=== PATIENT | male | born 1970 | race Caucasian/White ===

== ENCOUNTER → 2017-03-31 | Outpatient (CLI) | payer BC ==
--- NOTE | 2017-03-31 15:32 | MRI ---
STUDY: MRI OF THE LUMBAR SPINE HISTORY: Low back pain with numbness and tingling. Comparison: None. Technique: Multiplanar multi-sequence MRI of the lumbar spine was performed. Sagittal T1, sagittal T 2, and STIR images, axial T1, and axial T2 images were obtained. Findings: Sagittal images: Vertebral body heights and alignment are within normal limits. Marrow signal is heterogeneous.There i s degenerative endplate change identified, There is multilevel degenerative disc disease, most notabl e at L4/5. The conus medullaris is normal appearance terminating at the level of L1/2. Axial images: T12 -- L1: There is bilateral facet arthropathy and ligamentum flavum infolding. The central canal an d neural foramina are adequate. L1 -- L2: There is bilateral facet arthropathy and ligamentum flavum infolding. The central canal serenity ral foramina are adequate. L2 -- L3: There is a shallow disc bulge, bilateral facet arthropathy and ligamentum flavum infolding. The central canal and neural foramina are adequate. L3 -- L4: There is a shallow disc bulge, bilateral facet arthropathy and ligamentum flavum infolding. The central canal and left neural foramen is mild right neural foraminal stenosis. are adequate at t his level. L4 -- L5: There is a broad-based disc bulge with right paracentral disc herniation. This results in e ffacement of the right lateral recess and possible contact with the traversing L5 all nerve root with in the right lateral recess. The central canal neural foramina are adequate. L5 -- S1: There is a small central disc bulge. The central canal neural foramina are adequate. IMPRESSION: 1. The central canal neural foramina are adequate. 2. Multilevel lumbar spondylosis, most severe in L4/5. 3. 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 Reported By:
== END | disposition home or self-care (01) ==
LOC: RAD 08:17
PROVIDERS: ATTEND Orthopaedic Surgery
DX: M47.896 Other spondylosis, lumbar region (principal); M51.26 Other intervertebral disc displacement, lumbar region
CPT/HCPCS: 72148